=== PATIENT | female | born 1990 | race Asian ===

== ENCOUNTER 2017-07-11 08:39 | Emergency (ER) | payer OTHER ==
[~2017-07-11] VITALS: Ht 165.1 cm; Wt 83.9 kg
[2017-07-11 08:45] VITALS: TEMP 98.8
[2017-07-11 09:33] LABS: PLATELET COUNT 489 K/uL (152-353)
[2017-07-11 09:35] LABS: POTASSIUM 3.7 mmol/L (3.6-5.2)
[2017-07-11 14:15] VITALS: BP 119/74
== END 2017-07-11 14:20 | disposition home or self-care (01) ==
LOC: ED 08:39
DX: R06.02 Shortness of breath (principal)
CPT/HCPCS: 36415; 80053; 85027; 85379; 99283; Q9963